=== PATIENT | male | born 1965 | race Caucasian/White ===

== ENCOUNTER → 2017-03-19 | Outpatient (CLI) | payer BC ==
[2017-03-19] MEDS: GADOBUTROL 10 MMOL/10 ML VIAL IV (12:38)
== END | disposition home or self-care (01) ==
LOC: KCIC MRI 11:03
DX: H47.10 Unspecified papilledema (principal); H46.9 Unspecified optic neuritis
CPT/HCPCS: 70543; 70553; A9585

== ENCOUNTER → 2017-03-30 | Outpatient (CLI) | payer BC ==
[~2017-03-30] MED LIST: HYDROcodone/APAP 5/325MG 1 TAB TABLET
[2017-03-30] MEDS: HYDROcodone/APAP 5/325MG 1 TAB TABLET PO ×2 (11:21)
[2017-03-30 11:26] LABS: CSF GLUCOSE 91 mg/dL (37-70)
[2017-03-30 11:26] LABS: CSF PROTEIN 45.2 mg/dL (15.0-45.0)
[2017-03-30 11:48] LABS: CSF CLARITY CLEAR; CSF COLOR COLORLESS; CSF RBC COUNT 0; CSF WBC COUNT 0
[2017-04-09 08:25] LABS: VIRAL CULT FINAL No virus isolated. (.)
== END | disposition home or self-care (01) ==
LOC: RAD 08:03
DX: H46.9 Unspecified optic neuritis (principal)
CPT/HCPCS: 36415; 62270; 82945; 84157; 87071; 87075; 87102; 87205; 87252; 89051

== ENCOUNTER → 2017-06-07 | Outpatient (CLI) | payer BC | END | disposition home or self-care (01) | LOC: KCIC MRI 16:23 | DX: M51.16 Intervertebral disc disorders with radiculopathy, lumbar region (principal); M25.78 Osteophyte, vertebrae | CPT/HCPCS: 72148 ==